=== PATIENT | female | born 1985 | race African-American/Black ===

== ENCOUNTER 2016-10-18 22:04 | Emergency (ER) | payer MEDICAID, OTHER ==
[~2016-10-18] VITALS: Ht 167.6 cm; Wt 85.0 kg
[2016-10-18 22:05] VITALS: BP 147/83; PULSE 88; RESP 16; TEMP 98.6; O2SAT 100
[2016-10-18] MEDS ORDERED: [UNRECOGNIZED DRUG - OTHER] (23:03)
--- NOTE | 2016-10-18 23:20 | PD ---
HPI Chief Complaint: Chest Pain Time Seen by Provider: 22:57 Travel History International Travel<30 days: No Contact w/Intl Traveler<30days: No Traveled to known affect area: No History of Present Illness HPI Patient is a 30-year-old female with a history of anemia she states secondary to sickle cell anemia and vaginal bleeding presents emergency department with nonspecific chest pain for the past week. Patient states hurts her low bit more when she takes deep breath. Denies any history of oral contraception or hormone replacement therapy. States that she [place] been [place] oven [place]. Has not tried anything for pain prior to arrival. Denies any fever denies any shortness of breath denies any cough. States the pain is sharp in nature and midsternal without radiation. She states is happened to her in the past and she was told by one physician with anxiety and told by another physician that it was reflux. PFSH Past Medical History Anemia: Yes ?: Not Past Surgical History Surgical History: No Previous Surgery Social History Alcohol Use: No Tobacco Use: No Substance Use: No Allergies-Medications (Allergen,Severity, Reaction): Coded Allergies: No Known Allergies (Unverified , 10/18/16) Reported Meds & Prescriptions Reported Meds & Active Scripts Active Reported [iron infussion] MONTHLY Review of Systems Except as stated in HPI: all other systems reviewed are Neg Physical Exam Narrative GENERAL: Well-developed well-nourished no apparent distress. SKIN: Focused skin assessment warm/dry. HEAD: Atraumatic. Normocephalic. EYES: Pupils equal and round. No scleral icterus. No injection or drainage. ENT: No nasal bleeding or discharge. Mucous membranes pink and moist. NECK: Trachea midline. No JVD. CARDIOVASCULAR: Regular rate and rhythm. No murmur appreciated. 2+ bilateral equal pulses in all 4 extremity's. RESPIRATORY: No accessory muscle use. Clear to auscultation. Breath sounds equal bilaterally. GASTROINTESTINAL: Abdomen soft, non-tender, nondistended. Hepatic and splenic margins not palpable. MUSCULOSKELETAL: No obvious deformities. No clubbing. No cyanosis. No edema. NEUROLOGICAL: Awake and alert. No obvious cranial nerve deficits. Motor grossly within normal limits. Normal speech. PSYCHIATRIC: Appropriate mood and affect; insight and judgment normal. Data Data Last Documented VS Vital Signs Date Time Temp Pulse Resp B/P Pulse Ox O2 Delivery O2 Flow Rate FiO2 10/19/16 00:57 97 Room Air 10/18/16 22:05 98.6 88 16 147/83 Orders Electrocardiogram (10/18/16 ) Electrocardiogram (10/18/16 23:18) Complete Blood Count With Diff (10/18/16 23:18) Comprehensive Metabolic Panel (10/18/16 23:18) Magnesium (Mg) (10/18/16 23:18) Prothrombin Time / Inr (Pt) (10/18/16 23:18) Act Partial Throm Time (Ptt) (10/18/16 23:18) Troponin I (10/18/16 23:18) Ecg Monitoring (10/18/16 23:18) Iv Access Insert/Monitor (10/18/16 23:18) Oximetry (10/18/16 23:18) Oxygen Administration (10/18/16 23:18) Sodium Chloride 0.9% Flush (Ns Flush) (10/18/16 23:30) Chest, Pa & Lat (10/18/16 23:18) Ed Urine Pregnancytest Poc (10/18/16 23:18) Ketorolac Inj (Toradol Inj) (10/19/16 00:30) Labs Laboratory Tests Test 10/18/16 23:50 White Blood Count 8.8 TH/MM3 Red Blood Count 4.25 MIL/MM3 Hemoglobin 12.2 GM/DL Hematocrit 36.4 % Mean Corpuscular Volume 85.5 FL Mean Corpuscular Hemoglobin 28.7 PG Mean Corpuscular Hemoglobin 33.6 % Concent Red Cell Distribution Width 13.7 % Platelet Count 292 TH/MM3 Mean Platelet Volume 9.6 FL Neutrophils (%) (Auto) 66.7 % Lymphocytes (%) (Auto) 24.7 % Monocytes (%) (Auto) 6.8 % Eosinophils (%) (Auto) 1.1 % Basophils (%) (Auto) 0.7 % Neutrophils # (Auto) 5.9 TH/MM3 Lymphocytes # (Auto) 2.2 TH/MM3 Monocytes # (Auto) 0.6 TH/MM3 Eosinophils # (Auto) 0.1 TH/MM3 Basophils # (Auto) 0.1 TH/MM3 CBC Comment DIFF FINAL Differential Comment Prothrombin Time 10.9 SEC Prothromb Time International 1.0 RATIO Ratio Activated Partial 31.3 SEC Thromboplast Time Sodium Level 142 MEQ/L Potassium Level 3.7 MEQ/L Chloride Level 109 MEQ/L Carbon Dioxide Level 24.9 MEQ/L Anion Gap 8 MEQ/L Blood Urea Nitrogen 10 MG/DL Creatinine 0.67 MG/DL Estimat Glomerular Filtration 126 ML/MIN Rate Random Glucose 82 MG/DL Calcium Level 8.5 MG/DL Magnesium Level 2.2 MG/DL Total Bilirubin 0.1 MG/DL Aspartate Amino Transf 21 U/L (AST/SGOT) Alanine Aminotransferase 27 U/L (ALT/SGPT) Alkaline Phosphatase 50 U/L Troponin I LESS THAN 0.02 NG/ML Total Protein 7.8 GM/DL Albumin 3.9 GM/DL [facility] Medical Decision Making Medical Screen Exam Complete: Yes Emergency Medical Condition: Yes Interpretation(s) EKG shows normal sinus rhythm normal axis normal R-wave progression. No concerning ST segment changes. Intervals within normal limits. This is normal EKG. Differential Diagnosis Atypical chest pain, PE is excluded by wells and PERC criteria, pneumonia, ACS highly unlikely, MD highly unlikely. Narrative Course Patient roomed in emergency department, appears well and comfortable, initial workup including CBC troponin CMP and chest x-ray are within normal limits. Patient was given Toradol is feeling better. Discussed with the patient that her chest pain etiology is yet undetermined however she is highly atypical for ACS and low risk. She is stable for outpatient follow-up at this time. She is agreeable. Discussed with her the diagnosis of sickle cell anemia and she is not requesting opiate pain medicine at this time has not been this facility before. I told her that unclear as to whether or not this diagnosis is sickle cell anemia or trait as her hemoglobin is normal. Recommended that she discuss this with her oncologist. She is very pleasant. Stable for discharge at this time. Diagnosis Primary Impression: Chest pain with low risk for cardiac etiology Referrals: [facility] Med/Other Pt SpecificInfo: Prescription(s) given Disposition: 01 DISCHARGE HOME Condition: Stable Yovani Antonio MD Oct 18, 2016 23:19
[2016-10-18] MEDS ORDERED: SODIUM CHLORIDE 0.9% FLUSH 10 ML FLUSH IVF PRN (23:30)
--- NOTE | 2016-10-18 23:50 | RADRPT ---
EXAM DATE/TIME: 10/18/2016 23:33 [facility] COMPARISON: No previous studies available for comparison. INDICATIONS : Chest pain for 1 week. MEDICAL HISTORY : None. SURGICAL HISTORY : None. ENCOUNTER: Initial ACUITY: 1 day PAIN SCORE: 0/10 LOCATION: Bilateral chest FINDINGS: PA and lateral views of the chest demonstrate the lungs to be symmetrically aerated without evidence of mass, infiltrate or effusion. The cardiomediastinal contours are unremarkable. Osseous structure s are intact. CONCLUSION: No evidence of acute cardiopulmonary disease. Satish Dixon MD on October 18, 2016 at 23:48 Board Certified Radiologist. This report was verified electronically.
[2016-10-19 00:07] LABS: AUTOMATED NEUTROPHIL # 5.9 TH/MM3 (1.8-7.7); BASOPHIL # 0.1 TH/MM3 (0-0.2); BASOPHIL % 0.7 % (0.0-2.0); EOSINOPHIL # 0.1 TH/MM3 (0-0.4); EOSINOPHIL % 1.1 % (0.0-4.0); HEMATOCRIT 36.4 % (35.0-46.0); HEMO FLAGS DIFF FINAL; LYMPH % 24.7 % (9.0-44.0); LYMPHOCYTE # 2.2 TH/MM3 (1.0-4.8); MEAN CELL VOLUME 85.5 FL (80.0-100.0); MEAN CORPUSCULAR HEMOGLOBIN 28.7 PG (27.0-34.0); MEAN CORPUSCULAR HGB CONC 33.6 % (32.0-36.0); MONO % 6.8 % (0.0-8.0); NEUT % 66.7 % (16.0-70.0); PLATELET COUNT 292 TH/MM3 (150-450); RED BLOOD COUNT 4.25 MIL/MM3 (4.00-5.30); RED CELL DISTRIBUTION WIDTH 13.7 % (11.6-17.2); WHITE BLOOD COUNT 8.8 TH/MM3 (4.0-11.0)
[2016-10-19 00:16] LABS: APTT (PATIENT) 31.3 SEC (24.3-30.1); PROTHROMBIN TIME - PATIENT 10.9 SEC (9.8-11.6)
[2016-10-19] MEDS ORDERED: KETOROLAC TROMETHAMINE 30 MG/ML (IVP) VIAL IV PUSH ONE (00:30)
[2016-10-19 00:39] LABS: ALKALINE PHOSPHATASE 50 U/L (45-117); TOTAL BILIRUBIN ADULT 0.1 MG/DL (0.2-1.0)
[2016-10-19 00:40] LABS: ALT (GPT) 27 U/L (10-53); ANION GAP 8 MEQ/L (5-15); AST (GOT) 21 U/L (15-37); BICARBONATE 24.9 MEQ/L (21.0-32.0); BLOOD UREA NITROGEN 10 MG/DL (7-18); CHLORIDE 109 MEQ/L (98-107); GLOMERULAR FILTRATION RATE 126 ML/MIN (>89); MAGNESIUM 2.2 MG/DL (1.5-2.5); POTASSIUM 3.7 MEQ/L (3.5-5.1); SODIUM (NA) 142 MEQ/L (136-145)
[2016-10-19 00:57] VITALS: O2SAT 97
--- NOTE | 2016-10-19 14:19 | EKG ---
Date Performed: 10/18/2016 Time Performed: 23:07:27 PTAGE: 30 years EKG: Sinus rhythm NORMAL ECG NO PRIOR TRACING DOCTOR: Kalyan Leyva Interpretating Date/Time 10/19/2016 14:15:50
== END 2016-10-19 01:15 | disposition home or self-care (01) ==
LOC: NEPD 22:04
DX: R07.9 Chest pain, unspecified (principal); D64.9 Anemia, unspecified
CPT/HCPCS: 71020; 80053; 83735; 84484; 84703; 85025; 85610; 85730; 93005; 96374; 99285; J1885